=== PATIENT | male | born 1980 | race Hispanic/Latino ===

== ENCOUNTER 2021-02-21 08:23 | Inpatient (IN) | payer SELFPAY ==
[2021-02-21] VITALS (11 sets, daily range): BP systolic 126–150; BP diastolic 84–101
[~2021-02-21] VITALS: Ht 180.3 cm; Wt 131.5 kg
[2021-02-21] MEDS: DEXAMETHASONE SOD PHOS 10 MG/1 ML VIAL IV SCH (08:40)
[2021-02-21 08:41] LABS: BASOPHILS % 0.1 % (0.0-1.0); HEMATOCRIT 47.3 % (38.2-49.6); HEMOGLOBIN 15.6 g/dL (14.0-18.0); LYMPHOCYTES # (AUTO) 1.2 (1.0-3.2); LYMPHOCYTES % 10.4 % (18.0-39.1); MEAN CORPUSCULAR HEMOGLOBIN 29.5 pg (28-32); MEAN CORPUSCULAR VOLUME 89.4 fL (81-99); MONOCYTES % 8.4 % (4.4-11.3); NEUTROPHILS # (AUTO) 9.6 (2.1-6.9); NEUTROPHILS % 80.3 % (38.7-80.0); PLATELET COUNT 311 x10e3/uL (140-360); RED BLOOD COUNT 5.29 x10e6/uL (4.3-5.7); RED CELL DISTRIBUTION WIDTH 13.8 % (11.7-14.4)
[2021-02-21 09:03] LABS: ALBUMIN 3.1 g/dL (3.5-5.0); ALBUMIN/GLOBULIN RATIO 0.6 (0.8-2.0); ANION GAP 18.3 mmol/L (8-16); CALCIUM 9.1 mg/dL (8.4-10.2); CREATININE, SERUM 1.12 mg/dL (0.72-1.25); POTASSIUM 4.3 mmol/L (3.5-5.1)
[2021-02-21] MEDS ORDERED: REMDESIVIR 200MG/NS 100ML 200 MG in SODIUM CHLORIDE 0.9% 100 ML 100 ML IV ONE (12:00)
[2021-02-21] MEDS ORDERED: SIMETHICONE 80 MG CHEW PO PRN (14:15)
[2021-02-21] MEDS ORDERED: ALBUTEROL/IPRATROPIUM 3 ML NEB NEB PRN (14:15)
[2021-02-21] MEDS ORDERED: DEXTROSE 50% SYRINGE 50 ML IV PRN (14:15)
[2021-02-21] MEDS ORDERED: DIPHENHYDRAMINE HCL 25 MG CAP PO PRN (14:15)
[2021-02-21] MEDS ORDERED: ONDANSETRON HCL INJ 2MG/ML 2ML 2 MG/ML VIAL IV PRN (14:15)
[2021-02-21] MEDS ORDERED: HYDRALAZINE HCL 20 MG/ML VIAL IV PRN (14:15)
[2021-02-21] MEDS ORDERED: POTASSIUM CHLORIDE 20 MEQ TAB CR PO PRN (14:15)
[2021-02-21] MEDS ORDERED: DOCUSATE SODIUM 100 MG CAP PO PRN (14:15)
[2021-02-21] MEDS: ENOXAPARIN SOD INJ 40 MG/0.4 ML SYR SC SCH ×2 (15:17→20:03)
[2021-02-21] MEDS ORDERED: ENOXAPARIN SOD INJ 40 MG/0.4 ML SYR SC SCH (17:00)
[2021-02-21] MEDS: CEFTRIAXONE 1 GM in SODIUM CHLORIDE 0.9% 50ML 50 ML IV SCH (17:05)
[2021-02-21] MEDS: ASCORBIC ACID 500 MG TAB PO SCH (18:25)
[2021-02-21] MEDS: DEXMEDETOMIDINE 200MCG/NS 50ML 50 ML IV PRN ×2 (20:24→23:00)
[2021-02-21] MEDS ORDERED: MELATONIN 5 MG TABLET PO PRN (21:00)
[2021-02-21] MEDS ORDERED: ZOLPIDEM TARTRATE 5 MG TAB PO PRN (21:00)
[2021-02-22] VITALS (15 sets, daily range): BP systolic 122–157; BP diastolic 81–116
[2021-02-22] MEDS: DEXMEDETOMIDINE 200MCG/NS 50ML 50 ML IV PRN ×5 (03:14→20:45)
[2021-02-22 05:26] LABS: HEMATOCRIT 45.7 % (38.2-49.6); LYMPHOCYTES # (AUTO) 0.7 (1.0-3.2); LYMPHOCYTES % 7.2 % (18.0-39.1); MEAN CORPUSCULAR HEMOGLOBIN 29.5 pg (28-32); MEAN CORPUSCULAR HGB CONC 32.8 g/dL (31-35); MEAN CORPUSCULAR VOLUME 89.8 fL (81-99); MONOCYTES # (AUTO) 0.7 (0.2-0.8); MONOCYTES % 7.3 % (4.4-11.3); NEUTROPHILS # (AUTO) 8.2 (2.1-6.9); NEUTROPHILS % 84.4 % (38.7-80.0); PLATELET COUNT 318 x10e3/uL (140-360); RED BLOOD COUNT 5.09 x10e6/uL (4.3-5.7); RED CELL DISTRIBUTION WIDTH 13.5 % (11.7-14.4)
[2021-02-22 05:49] LABS: ANION GAP 19.5 mmol/L (8-16); CALCIUM 8.7 mg/dL (8.4-10.2); POTASSIUM 4.5 mmol/L (3.5-5.1)
[2021-02-22] MEDS: DEXAMETHASONE SOD PHOS 10 MG/1 ML VIAL IV SCH (09:31)
[2021-02-22] MEDS: ZINC SULFATE 220 MG CAP PO SCH (09:31)
[2021-02-22] MEDS: ASCORBIC ACID 500 MG TAB PO SCH ×2 (09:31→20:20)
[2021-02-22] MEDS: PANTOPRAZOLE SOD 40 MG TABEC PO SCH (09:31)
[2021-02-22] MEDS: ENOXAPARIN SOD INJ 40 MG/0.4 ML SYR SC SCH ×2 (09:31→20:21)
[2021-02-22] MEDS ORDERED: DEXTROSE 50% SYRINGE 50 ML IV PRN (12:00)
[2021-02-22] MEDS: INSULIN REGULAR, HUMAN 100 UNIT/1 ML SQ SCH ×3 (12:45→21:16)
[2021-02-22] MEDS: REMDESIVIR 100MG/NS 100ML 100 MG in SODIUM CHLORIDE 0.9% 100 ML 100 ML IV SCH (15:00)
[2021-02-22] MEDS: BENZONATATE 100 MG CAP PO PRN (20:20)
[2021-02-22] MEDS: CEFTRIAXONE 1 GM in SODIUM CHLORIDE 0.9% 50ML 50 ML IV SCH (20:20)
[2021-02-22] MEDS: ACETAMINOPHEN 325 MG TAB PO PRN (20:46)
[2021-02-23] VITALS (16 sets, daily range): BP systolic 140–171; BP diastolic 84–117
[2021-02-23] MEDS: DEXMEDETOMIDINE 200MCG/NS 50ML 50 ML IV PRN ×5 (00:24→19:50)
[2021-02-23 05:02] LABS: BASOPHILS % 0.3 % (0.0-1.0); HEMATOCRIT 46.8 % (38.2-49.6); HEMOGLOBIN 15.3 g/dL (14.0-18.0); LYMPHOCYTES # (AUTO) 0.5 (1.0-3.2); LYMPHOCYTES % 5.7 % (18.0-39.1); MEAN CORPUSCULAR HEMOGLOBIN 29.5 pg (28-32); MEAN CORPUSCULAR HGB CONC 32.7 g/dL (31-35); MEAN CORPUSCULAR VOLUME 90.3 fL (81-99); MONOCYTES # (AUTO) 0.5 (0.2-0.8); MONOCYTES % 5.3 % (4.4-11.3); NEUTROPHILS # (AUTO) 8.1 (2.1-6.9); NEUTROPHILS % 87.8 % (38.7-80.0); PLATELET COUNT 271 x10e3/uL (140-360); RED BLOOD COUNT 5.18 x10e6/uL (4.3-5.7); RED CELL DISTRIBUTION WIDTH 13.3 % (11.7-14.4)
[2021-02-23 05:27] LABS: ALBUMIN 2.7 g/dL (3.5-5.0); ALBUMIN/GLOBULIN RATIO 0.7 (0.8-2.0); ANION GAP 13.6 mmol/L (8-16); CALCIUM 8.6 mg/dL (8.4-10.2); CREATININE, SERUM 0.81 mg/dL (0.72-1.25); POTASSIUM 4.6 mmol/L (3.5-5.1)
[2021-02-23] MEDS: ASCORBIC ACID 500 MG TAB PO SCH ×2 (07:20→16:12)
[2021-02-23] MEDS: ENOXAPARIN SOD INJ 40 MG/0.4 ML SYR SC SCH ×2 (07:20→21:34)
[2021-02-23] MEDS: PANTOPRAZOLE SOD 40 MG TABEC PO SCH (07:20)
[2021-02-23] MEDS: ZINC SULFATE 220 MG CAP PO SCH (07:20)
[2021-02-23] MEDS: DEXAMETHASONE SOD PHOS 10 MG/1 ML VIAL IV SCH (07:20)
[2021-02-23] MEDS: INSULIN REGULAR, HUMAN 100 UNIT/1 ML SQ SCH ×4 (08:00→21:00)
[2021-02-23] MEDS: REMDESIVIR 100MG/NS 100ML 100 MG in SODIUM CHLORIDE 0.9% 100 ML 100 ML IV SCH (13:49)
[2021-02-23] MEDS: CEFTRIAXONE 1 GM in SODIUM CHLORIDE 0.9% 50ML 50 ML IV SCH (16:09)
[2021-02-23] MEDS: HYDRALAZINE HCL 20 MG/ML VIAL IV PRN (23:50)
[2021-02-24] VITALS (26 sets, daily range): BP systolic 112–170; BP diastolic 67–116
[2021-02-24] MEDS ORDERED: RIFAXIMIN 550 MG TABLET ONE (01:03)
[2021-02-24] MEDS: DEXMEDETOMIDINE 200MCG/NS 50ML 50 ML IV PRN ×6 (03:30→20:40)
[2021-02-24 05:30] LABS: BASOPHILS % 0.2 % (0.0-1.0); HEMOGLOBIN 15.6 g/dL (14.0-18.0); LYMPHOCYTES # (AUTO) 0.6 (1.0-3.2); LYMPHOCYTES % 5.7 % (18.0-39.1); MEAN CORPUSCULAR HEMOGLOBIN 29.7 pg (28-32); MEAN CORPUSCULAR HGB CONC 33.2 g/dL (31-35); MEAN CORPUSCULAR VOLUME 89.4 fL (81-99); MONOCYTES # (AUTO) 0.5 (0.2-0.8); MONOCYTES % 4.8 % (4.4-11.3); NEUTROPHILS # (AUTO) 8.9 (2.1-6.9); NEUTROPHILS % 87.9 % (38.7-80.0); PLATELET COUNT 193 x10e3/uL (140-360); RED BLOOD COUNT 5.26 x10e6/uL (4.3-5.7); RED CELL DISTRIBUTION WIDTH 13.5 % (11.7-14.4)
[2021-02-24 05:52] LABS: ALBUMIN 2.8 g/dL (3.5-5.0); ALBUMIN/GLOBULIN RATIO 0.7 (0.8-2.0); ANION GAP 15.9 mmol/L (8-16); CALCIUM 8.7 mg/dL (8.4-10.2); CREATININE, SERUM 0.81 mg/dL (0.72-1.25); POTASSIUM 4.9 mmol/L (3.5-5.1)
[2021-02-24] MEDS: PANTOPRAZOLE SOD 40 MG TABEC PO SCH (08:15)
[2021-02-24] MEDS: INSULIN REGULAR, HUMAN 100 UNIT/1 ML SQ SCH ×4 (08:15→20:38)
[2021-02-24] MEDS: ASCORBIC ACID 500 MG TAB PO SCH ×2 (08:57→17:44)
[2021-02-24] MEDS: ENOXAPARIN SOD INJ 40 MG/0.4 ML SYR SC SCH ×2 (08:57→20:38)
[2021-02-24] MEDS: DEXAMETHASONE SOD PHOS 10 MG/1 ML VIAL IV SCH (08:57)
[2021-02-24] MEDS: ZINC SULFATE 220 MG CAP PO SCH (08:57)
[2021-02-24] MEDS: ACETAMINOPHEN 325 MG TAB PO PRN (10:21)
[2021-02-24] MEDS: GUAIFENESIN/CODEINE 10 ML CUP PO PRN (10:21)
[2021-02-24] MEDS: REMDESIVIR 100MG/NS 100ML 100 MG in SODIUM CHLORIDE 0.9% 100 ML 100 ML IV SCH (14:10)
[2021-02-24] MEDS: CEFTRIAXONE 1 GM in SODIUM CHLORIDE 0.9% 50ML 50 ML IV SCH (17:44)
[2021-02-24] MEDS: HYDRALAZINE HCL 20 MG/ML VIAL IV PRN (21:09)
[2021-02-25] VITALS (27 sets, daily range): BP systolic 99–150; BP diastolic 79–104
[2021-02-25] MEDS: DEXMEDETOMIDINE 200MCG/NS 50ML 50 ML IV PRN ×8 (00:48→22:41)
[2021-02-25] MEDS: ACETAMINOPHEN 325 MG TAB PO PRN ×2 (02:14→08:06)
[2021-02-25 05:04] LABS: BASOPHILS % 0.1 % (0.0-1.0); EOSINOPHILS % 0.4 % (0.0-6.0); HEMATOCRIT 46.2 % (38.2-49.6); HEMOGLOBIN 15.5 g/dL (14.0-18.0); LYMPHOCYTES # (AUTO) 0.5 (1.0-3.2); LYMPHOCYTES % 5.3 % (18.0-39.1); MEAN CORPUSCULAR HEMOGLOBIN 29.8 pg (28-32); MEAN CORPUSCULAR HGB CONC 33.5 g/dL (31-35); MEAN CORPUSCULAR VOLUME 88.7 fL (81-99); MONOCYTES # (AUTO) 0.3 (0.2-0.8); MONOCYTES % 3.6 % (4.4-11.3); NEUTROPHILS # (AUTO) 8.4 (2.1-6.9); NEUTROPHILS % 88.9 % (38.7-80.0); PLATELET COUNT 187 x10e3/uL (140-360); RED BLOOD COUNT 5.21 x10e6/uL (4.3-5.7); RED CELL DISTRIBUTION WIDTH 13.4 % (11.7-14.4)
[2021-02-25 05:27] LABS: ALBUMIN 2.6 g/dL (3.5-5.0); ALBUMIN/GLOBULIN RATIO 0.6 (0.8-2.0); ANION GAP 16.9 mmol/L (8-16); CALCIUM 8.2 mg/dL (8.4-10.2); CREATININE, SERUM 0.77 mg/dL (0.72-1.25); POTASSIUM 4.9 mmol/L (3.5-5.1)
[2021-02-25] MEDS: DEXAMETHASONE SOD PHOS 10 MG/1 ML VIAL IV SCH (08:04)
[2021-02-25] MEDS: PANTOPRAZOLE SOD 40 MG TABEC PO SCH (08:04)
[2021-02-25] MEDS: ZINC SULFATE 220 MG CAP PO SCH (08:05)
[2021-02-25] MEDS: ENOXAPARIN SOD INJ 40 MG/0.4 ML SYR SC SCH ×2 (08:05→20:51)
[2021-02-25] MEDS: ASCORBIC ACID 500 MG TAB PO SCH ×2 (08:05→16:45)
[2021-02-25] MEDS: INSULIN REGULAR, HUMAN 100 UNIT/1 ML SQ SCH ×4 (08:09→20:52)
[2021-02-25] MEDS: REMDESIVIR 100MG/NS 100ML 100 MG in SODIUM CHLORIDE 0.9% 100 ML 100 ML IV SCH (13:06)
[2021-02-26] VITALS (26 sets, daily range): BP systolic 99–160; BP diastolic 57–109
[2021-02-26] MEDS: DEXMEDETOMIDINE 200MCG/NS 50ML 50 ML IV PRN ×6 (02:59→23:30)
[2021-02-26 04:56] LABS: BASOPHILS % 0.2 % (0.0-1.0); EOSINOPHILS # (AUTO) 0.1 (0.0-0.4); EOSINOPHILS % 0.6 % (0.0-6.0); HEMATOCRIT 48.3 % (38.2-49.6); LYMPHOCYTES # (AUTO) 0.5 (1.0-3.2); LYMPHOCYTES % 4.9 % (18.0-39.1); MEAN CORPUSCULAR HGB CONC 33.1 g/dL (31-35); MEAN CORPUSCULAR VOLUME 90.4 fL (81-99); MONOCYTES # (AUTO) 0.4 (0.2-0.8); MONOCYTES % 3.9 % (4.4-11.3); NEUTROPHILS # (AUTO) 9.5 (2.1-6.9); NEUTROPHILS % 87.6 % (38.7-80.0); PLATELET COUNT 237 x10e3/uL (140-360); RED BLOOD COUNT 5.34 x10e6/uL (4.3-5.7); RED CELL DISTRIBUTION WIDTH 13.6 % (11.7-14.4)
[2021-02-26 05:25] LABS: ALBUMIN 2.5 g/dL (3.5-5.0); ALBUMIN/GLOBULIN RATIO 0.5 (0.8-2.0); ANION GAP 15.3 mmol/L (8-16); CALCIUM 8.9 mg/dL (8.4-10.2); CREATININE, SERUM 0.75 mg/dL (0.72-1.25); POTASSIUM 5.3 mmol/L (3.5-5.1)
[2021-02-26] MEDS: PANTOPRAZOLE SOD 40 MG TABEC PO SCH (08:02)
[2021-02-26] MEDS: ENOXAPARIN SOD INJ 40 MG/0.4 ML SYR SC SCH ×2 (08:03→20:20)
[2021-02-26] MEDS: ASCORBIC ACID 500 MG TAB PO SCH ×2 (08:03→17:00)
[2021-02-26] MEDS: DEXAMETHASONE SOD PHOS 10 MG/1 ML VIAL IV SCH (08:03)
[2021-02-26] MEDS: ZINC SULFATE 220 MG CAP PO SCH (08:03)
[2021-02-26] MEDS: INSULIN REGULAR, HUMAN 100 UNIT/1 ML SQ SCH ×4 (08:04→20:21)
[2021-02-26] MEDS ORDERED: TOCILIZUMAB 800 MG in SODIUM CHLORIDE 0.9% 100 ML IV ONE (12:00)
[2021-02-27] VITALS (26 sets, daily range): BP systolic 107–170; BP diastolic 68–111
[2021-02-27] MEDS: HYDRALAZINE HCL 20 MG/ML VIAL IV PRN (02:33)
[2021-02-27] MEDS: DEXMEDETOMIDINE 200MCG/NS 50ML 50 ML IV PRN ×6 (03:50→17:30)
[2021-02-27 04:57] LABS: BASOPHILS % 0.3 % (0.0-1.0); EOSINOPHILS % 0.4 % (0.0-6.0); HEMATOCRIT 47.2 % (38.2-49.6); HEMOGLOBIN 15.4 g/dL (14.0-18.0); LYMPHOCYTES # (AUTO) 0.5 (1.0-3.2); MEAN CORPUSCULAR HEMOGLOBIN 29.2 pg (28-32); MEAN CORPUSCULAR HGB CONC 32.6 g/dL (31-35); MEAN CORPUSCULAR VOLUME 89.6 fL (81-99); MONOCYTES # (AUTO) 0.4 (0.2-0.8); NEUTROPHILS # (AUTO) 8.6 (2.1-6.9); NEUTROPHILS % 88.7 % (38.7-80.0); PLATELET COUNT 244 x10e3/uL (140-360); RED BLOOD COUNT 5.27 x10e6/uL (4.3-5.7); RED CELL DISTRIBUTION WIDTH 13.5 % (11.7-14.4)
[2021-02-27 05:27] LABS: ALBUMIN 2.5 g/dL (3.5-5.0); ALBUMIN/GLOBULIN RATIO 0.6 (0.8-2.0); CALCIUM 8.8 mg/dL (8.4-10.2); CREATININE, SERUM 0.74 mg/dL (0.72-1.25)
[2021-02-27] MEDS: PANTOPRAZOLE SOD 40 MG TABEC PO SCH (08:14)
[2021-02-27] MEDS: ASCORBIC ACID 500 MG TAB PO SCH ×2 (08:25→17:28)
[2021-02-27] MEDS: ENOXAPARIN SOD INJ 40 MG/0.4 ML SYR SC SCH ×2 (08:25→20:40)
[2021-02-27] MEDS: ZINC SULFATE 220 MG CAP PO SCH (08:25)
[2021-02-27] MEDS: DEXAMETHASONE SOD PHOS 10 MG/1 ML VIAL IV SCH (08:25)
[2021-02-27] MEDS: INSULIN REGULAR, HUMAN 100 UNIT/1 ML SQ SCH ×4 (08:31→20:40)
[2021-02-28] VITALS (25 sets, daily range): BP systolic 105–153; BP diastolic 70–98
[2021-02-28] MEDS: DEXMEDETOMIDINE 200MCG/NS 50ML 50 ML IV PRN ×9 (00:19→19:50)
[2021-02-28 06:08] LABS: BASOPHILS % 0.1 % (0.0-1.0); EOSINOPHILS # (AUTO) 0.1 (0.0-0.4); EOSINOPHILS % 0.9 % (0.0-6.0); HEMATOCRIT 49.2 % (38.2-49.6); HEMOGLOBIN 16.2 g/dL (14.0-18.0); LYMPHOCYTES # (AUTO) 0.5 (1.0-3.2); LYMPHOCYTES % 5.5 % (18.0-39.1); MEAN CORPUSCULAR HEMOGLOBIN 29.6 pg (28-32); MEAN CORPUSCULAR HGB CONC 32.9 g/dL (31-35); MEAN CORPUSCULAR VOLUME 89.9 fL (81-99); MONOCYTES # (AUTO) 0.4 (0.2-0.8); MONOCYTES % 4.8 % (4.4-11.3); NEUTROPHILS # (AUTO) 7.5 (2.1-6.9); NEUTROPHILS % 87.8 % (38.7-80.0); PLATELET COUNT 247 x10e3/uL (140-360); RED BLOOD COUNT 5.47 x10e6/uL (4.3-5.7); RED CELL DISTRIBUTION WIDTH 13.4 % (11.7-14.4)
[2021-02-28 06:26] LABS: ALBUMIN 2.6 g/dL (3.5-5.0); ALBUMIN/GLOBULIN RATIO 0.6 (0.8-2.0); ANION GAP 13.6 mmol/L (8-16); CALCIUM 8.9 mg/dL (8.4-10.2); CREATININE, SERUM 0.75 mg/dL (0.72-1.25); POTASSIUM 5.6 mmol/L (3.5-5.1)
[2021-02-28] MEDS: INSULIN REGULAR, HUMAN 100 UNIT/1 ML SQ SCH ×4 (07:35→20:46)
[2021-02-28] MEDS: PANTOPRAZOLE SOD 40 MG TABEC PO SCH (07:35)
[2021-02-28] MEDS: ENOXAPARIN SOD INJ 40 MG/0.4 ML SYR SC SCH (08:30)
[2021-02-28] MEDS: ZINC SULFATE 220 MG CAP PO SCH (08:30)
[2021-02-28] MEDS: ASCORBIC ACID 500 MG TAB PO SCH ×2 (08:30→17:33)
[2021-02-28] MEDS: GUAIFENESIN/CODEINE 10 ML CUP PO PRN (10:47)
[2021-02-28] MEDS ORDERED: FUROSEMIDE INJ 10 MG/ML 4 ML VIAL IV ONE ×2 (12:45→17:00)
[2021-02-28] MEDS: DEXMEDETOMIDINE 200MCG/NS 50ML 50 ML IV SCH (23:37)
[2021-03-01] VITALS (25 sets, daily range): BP systolic 88–124; BP diastolic 53–90
[2021-03-01] MEDS: DEXMEDETOMIDINE 200MCG/NS 50ML 50 ML IV SCH ×7 (00:01→23:10)
[2021-03-01 05:50] LABS: BASOPHILS % 0.2 % (0.0-1.0); EOSINOPHILS # (AUTO) 0.4 (0.0-0.4); EOSINOPHILS % 4.1 % (0.0-6.0); HEMATOCRIT 51.4 % (38.2-49.6); HEMOGLOBIN 16.6 g/dL (14.0-18.0); LYMPHOCYTES # (AUTO) 0.6 (1.0-3.2); LYMPHOCYTES % 6.6 % (18.0-39.1); MEAN CORPUSCULAR HEMOGLOBIN 29.1 pg (28-32); MEAN CORPUSCULAR HGB CONC 32.3 g/dL (31-35); MONOCYTES # (AUTO) 0.3 (0.2-0.8); MONOCYTES % 3.4 % (4.4-11.3); NEUTROPHILS # (AUTO) 7.7 (2.1-6.9); PLATELET COUNT 231 x10e3/uL (140-360); RED BLOOD COUNT 5.71 x10e6/uL (4.3-5.7); RED CELL DISTRIBUTION WIDTH 13.3 % (11.7-14.4)
[2021-03-01 06:45] LABS: ALBUMIN 2.6 g/dL (3.5-5.0); ALBUMIN/GLOBULIN RATIO 0.6 (0.8-2.0); ANION GAP 13.7 mmol/L (8-16); CALCIUM 8.6 mg/dL (8.4-10.2); CREATININE, SERUM 0.9 mg/dL (0.72-1.25); POTASSIUM 4.7 mmol/L (3.5-5.1)
[2021-03-01] MEDS: PANTOPRAZOLE SOD 40 MG TABEC PO SCH (08:33)
[2021-03-01] MEDS: ZINC SULFATE 220 MG CAP PO SCH (08:36)
[2021-03-01] MEDS: INSULIN REGULAR, HUMAN 100 UNIT/1 ML SQ SCH ×4 (08:36→20:54)
[2021-03-01] MEDS: ASCORBIC ACID 500 MG TAB PO SCH ×2 (08:36→16:42)
[2021-03-01] MEDS: ACETAMINOPHEN 325 MG TAB PO PRN ×2 (08:37→17:26)
[2021-03-01] MEDS ORDERED: SODIUM CHLORIDE 0.9% 1000ML 1,000 ML IV ONE (11:45)
[2021-03-01] MEDS: ENOXAPARIN SOD INJ 40 MG/0.4 ML SYR SC SCH (20:52)
[2021-03-01] MEDS: BENZONATATE 100 MG CAP PO PRN (20:54)
[2021-03-02] VITALS (26 sets, daily range): BP systolic 85–131; BP diastolic 65–92
[2021-03-02] MEDS: DEXMEDETOMIDINE 200MCG/NS 50ML 50 ML IV SCH ×7 (00:12→21:54)
[2021-03-02] MEDS: ACETAMINOPHEN 325 MG TAB PO PRN ×2 (00:13→22:30)
[2021-03-02] MEDS: LIDOCAINE 4% PATCH TP PRN ×2 (00:17→13:25)
[2021-03-02 05:13] LABS: BASOPHILS % 0.2 % (0.0-1.0); EOSINOPHILS # (AUTO) 0.3 (0.0-0.4); EOSINOPHILS % 2.5 % (0.0-6.0); HEMATOCRIT 47.5 % (38.2-49.6); HEMOGLOBIN 15.6 g/dL (14.0-18.0); LYMPHOCYTES # (AUTO) 0.7 (1.0-3.2); LYMPHOCYTES % 6.2 % (18.0-39.1); MEAN CORPUSCULAR HEMOGLOBIN 29.1 pg (28-32); MEAN CORPUSCULAR HGB CONC 32.8 g/dL (31-35); MEAN CORPUSCULAR VOLUME 88.6 fL (81-99); MONOCYTES # (AUTO) 0.2 (0.2-0.8); MONOCYTES % 2.1 % (4.4-11.3); NEUTROPHILS # (AUTO) 9.7 (2.1-6.9); NEUTROPHILS % 88.5 % (38.7-80.0); PLATELET COUNT 164 x10e3/uL (140-360); RED BLOOD COUNT 5.36 x10e6/uL (4.3-5.7); RED CELL DISTRIBUTION WIDTH 13.1 % (11.7-14.4)
[2021-03-02 05:32] LABS: ALBUMIN 2.6 g/dL (3.5-5.0); ALBUMIN/GLOBULIN RATIO 0.7 (0.8-2.0); ANION GAP 14.6 mmol/L (8-16); CALCIUM 8.3 mg/dL (8.4-10.2); CREATININE, SERUM 0.75 mg/dL (0.72-1.25); POTASSIUM 4.6 mmol/L (3.5-5.1)
[2021-03-02] MEDS: BENZONATATE 100 MG CAP PO PRN ×3 (05:35→20:20)
[2021-03-02] MEDS: PANTOPRAZOLE SOD 40 MG TABEC PO SCH ×2 (07:42→07:52)
[2021-03-02] MEDS: INSULIN REGULAR, HUMAN 100 UNIT/1 ML SQ SCH ×4 (07:43→21:00)
[2021-03-02] MEDS: ENOXAPARIN SOD INJ 40 MG/0.4 ML SYR SC SCH ×2 (07:52→20:08)
[2021-03-02] MEDS: ZINC SULFATE 220 MG CAP PO SCH (07:52)
[2021-03-02] MEDS: ASCORBIC ACID 500 MG TAB PO SCH ×2 (07:52→18:09)
[2021-03-03] VITALS (24 sets, daily range): BP systolic 90–129; BP diastolic 54–99
[2021-03-03] MEDS: DEXMEDETOMIDINE 200MCG/NS 50ML 50 ML IV SCH ×7 (02:18→22:09)
[2021-03-03] MEDS: ACETAMINOPHEN 325 MG TAB PO PRN ×4 (04:26→22:09)
[2021-03-03 06:20] LABS: BASOPHILS % 0.3 % (0.0-1.0); EOSINOPHILS # (AUTO) 0.3 (0.0-0.4); EOSINOPHILS % 2.2 % (0.0-6.0); HEMOGLOBIN 15.2 g/dL (14.0-18.0); LYMPHOCYTES # (AUTO) 0.7 (1.0-3.2); LYMPHOCYTES % 5.1 % (18.0-39.1); MEAN CORPUSCULAR HEMOGLOBIN 29.3 pg (28-32); MEAN CORPUSCULAR HGB CONC 32.3 g/dL (31-35); MEAN CORPUSCULAR VOLUME 90.6 fL (81-99); MONOCYTES # (AUTO) 0.3 (0.2-0.8); MONOCYTES % 2.5 % (4.4-11.3); NEUTROPHILS # (AUTO) 12.1 (2.1-6.9); NEUTROPHILS % 89.1 % (38.7-80.0); PLATELET COUNT 188 x10e3/uL (140-360); RED BLOOD COUNT 5.19 x10e6/uL (4.3-5.7); RED CELL DISTRIBUTION WIDTH 13.3 % (11.7-14.4)
[2021-03-03 07:30] LABS: ALBUMIN 2.7 g/dL (3.5-5.0); ALBUMIN/GLOBULIN RATIO 0.7 (0.8-2.0); ANION GAP 17.9 mmol/L (8-16); CALCIUM 8.3 mg/dL (8.4-10.2); CREATININE, SERUM 0.73 mg/dL (0.72-1.25); POTASSIUM 4.9 mmol/L (3.5-5.1)
[2021-03-03] MEDS: INSULIN REGULAR, HUMAN 100 UNIT/1 ML SQ SCH ×4 (07:30→20:58)
[2021-03-03] MEDS: ENOXAPARIN SOD INJ 40 MG/0.4 ML SYR SC SCH ×2 (08:05→20:16)
[2021-03-03] MEDS: ZINC SULFATE 220 MG CAP PO SCH (08:05)
[2021-03-03] MEDS: ASCORBIC ACID 500 MG TAB PO SCH ×2 (08:05→16:46)
[2021-03-03] MEDS: BENZONATATE 100 MG CAP PO PRN (17:04)
[2021-03-03] MEDS: LIDOCAINE 4% PATCH TP PRN (20:15)
[2021-03-04] VITALS (26 sets, daily range): BP systolic 125–149; BP diastolic 79–98
[2021-03-04] MEDS: DEXMEDETOMIDINE 200MCG/NS 50ML 50 ML IV SCH ×5 (01:57→18:09)
[2021-03-04 05:36] LABS: BASOPHILS % 0.3 % (0.0-1.0); EOSINOPHILS # (AUTO) 0.4 (0.0-0.4); EOSINOPHILS % 2.5 % (0.0-6.0); HEMATOCRIT 46.4 % (38.2-49.6); LYMPHOCYTES # (AUTO) 0.9 (1.0-3.2); LYMPHOCYTES % 6.1 % (18.0-39.1); MEAN CORPUSCULAR HEMOGLOBIN 29.5 pg (28-32); MEAN CORPUSCULAR HGB CONC 32.3 g/dL (31-35); MEAN CORPUSCULAR VOLUME 91.3 fL (81-99); MONOCYTES # (AUTO) 0.3 (0.2-0.8); MONOCYTES % 2.2 % (4.4-11.3); NEUTROPHILS # (AUTO) 13.3 (2.1-6.9); PLATELET COUNT 186 x10e3/uL (140-360); RED BLOOD COUNT 5.08 x10e6/uL (4.3-5.7); RED CELL DISTRIBUTION WIDTH 13.4 % (11.7-14.4)
[2021-03-04 06:04] LABS: ALBUMIN 2.8 g/dL (3.5-5.0); ALBUMIN/GLOBULIN RATIO 0.8 (0.8-2.0); ANION GAP 17.7 mmol/L (8-16); CALCIUM 8.4 mg/dL (8.4-10.2); CREATININE, SERUM 0.73 mg/dL (0.72-1.25); POTASSIUM 4.7 mmol/L (3.5-5.1)
[2021-03-04] MEDS: INSULIN REGULAR, HUMAN 100 UNIT/1 ML SQ SCH ×4 (07:30→20:33)
[2021-03-04] MEDS: ZINC SULFATE 220 MG CAP PO SCH (08:51)
[2021-03-04] MEDS: GUAIFENESIN/CODEINE 10 ML CUP PO PRN ×2 (08:51→23:51)
[2021-03-04] MEDS: PANTOPRAZOLE SOD 40 MG TABEC PO SCH (08:51)
[2021-03-04] MEDS: ASCORBIC ACID 500 MG TAB PO SCH ×2 (08:51→18:08)
[2021-03-04] MEDS: ENOXAPARIN SOD INJ 40 MG/0.4 ML SYR SC SCH ×2 (08:51→20:31)
[2021-03-04] MEDS: ACETAMINOPHEN 325 MG TAB PO PRN (08:55)
[2021-03-04] MEDS: BENZONATATE 100 MG CAP PO PRN (20:41)
[2021-03-05] VITALS (25 sets, daily range): BP systolic 121–158; BP diastolic 63–95
[2021-03-05] MEDS: DEXMEDETOMIDINE 200MCG/NS 50ML 50 ML IV SCH ×11 (01:09→22:53)
[2021-03-05] MEDS: BENZONATATE 100 MG CAP PO PRN ×2 (05:23→11:56)
[2021-03-05 05:59] LABS: BASOPHILS # (AUTO) 0.1 (0.0-0.1); BASOPHILS % 0.5 % (0.0-1.0); EOSINOPHILS # (AUTO) 0.4 (0.0-0.4); EOSINOPHILS % 2.7 % (0.0-6.0); HEMATOCRIT 44.5 % (38.2-49.6); HEMOGLOBIN 14.3 g/dL (14.0-18.0); LYMPHOCYTES # (AUTO) 0.7 (1.0-3.2); LYMPHOCYTES % 5.4 % (18.0-39.1); MEAN CORPUSCULAR HEMOGLOBIN 29.5 pg (28-32); MEAN CORPUSCULAR HGB CONC 32.1 g/dL (31-35); MEAN CORPUSCULAR VOLUME 91.8 fL (81-99); MONOCYTES # (AUTO) 0.4 (0.2-0.8); MONOCYTES % 2.8 % (4.4-11.3); NEUTROPHILS % 87.5 % (38.7-80.0); PLATELET COUNT 179 x10e3/uL (140-360); RED BLOOD COUNT 4.85 x10e6/uL (4.3-5.7); RED CELL DISTRIBUTION WIDTH 13.7 % (11.7-14.4)
[2021-03-05] MEDS: INSULIN REGULAR, HUMAN 100 UNIT/1 ML SQ SCH ×4 (07:30→21:50)
[2021-03-05 07:57] LABS: ANION GAP 17.3 mmol/L (8-16); CALCIUM 8.1 mg/dL (8.4-10.2); CREATININE, SERUM 0.69 mg/dL (0.72-1.25); POTASSIUM 4.3 mmol/L (3.5-5.1)
[2021-03-05] MEDS: PANTOPRAZOLE SOD 40 MG TABEC PO SCH (08:42)
[2021-03-05] MEDS: ASCORBIC ACID 500 MG TAB PO SCH ×2 (08:42→16:31)
[2021-03-05] MEDS: ZINC SULFATE 220 MG CAP PO SCH (08:43)
[2021-03-05] MEDS: ENOXAPARIN SOD INJ 40 MG/0.4 ML SYR SC SCH ×2 (08:43→21:29)
[2021-03-05] MEDS: LIDOCAINE 4% PATCH TP PRN (13:50)
[2021-03-05] MEDS: ACETAMINOPHEN 325 MG TAB PO PRN (13:50)
[2021-03-06] VITALS (25 sets, daily range): BP systolic 83–162; BP diastolic 55–101
[2021-03-06] MEDS: DEXMEDETOMIDINE 200MCG/NS 50ML 50 ML IV SCH ×7 (02:26→14:24)
[2021-03-06 06:03] LABS: BASOPHILS # (AUTO) 0.1 (0.0-0.1); BASOPHILS % 0.6 % (0.0-1.0); EOSINOPHILS # (AUTO) 0.4 (0.0-0.4); EOSINOPHILS % 3.2 % (0.0-6.0); HEMATOCRIT 44.7 % (38.2-49.6); HEMOGLOBIN 14.4 g/dL (14.0-18.0); LYMPHOCYTES # (AUTO) 0.7 (1.0-3.2); LYMPHOCYTES % 5.3 % (18.0-39.1); MEAN CORPUSCULAR HEMOGLOBIN 29.3 pg (28-32); MEAN CORPUSCULAR HGB CONC 32.2 g/dL (31-35); MONOCYTES # (AUTO) 0.4 (0.2-0.8); MONOCYTES % 3.5 % (4.4-11.3); NEUTROPHILS # (AUTO) 10.7 (2.1-6.9); NEUTROPHILS % 86.4 % (38.7-80.0); PLATELET COUNT 182 x10e3/uL (140-360); RED BLOOD COUNT 4.91 x10e6/uL (4.3-5.7); RED CELL DISTRIBUTION WIDTH 13.5 % (11.7-14.4)
[2021-03-06 06:30] LABS: ANION GAP 16.3 mmol/L (8-16); CALCIUM 8.5 mg/dL (8.4-10.2); CREATININE, SERUM 0.69 mg/dL (0.72-1.25); POTASSIUM 4.3 mmol/L (3.5-5.1)
[2021-03-06] MEDS: ASCORBIC ACID 500 MG TAB PO SCH ×2 (07:42→16:57)
[2021-03-06] MEDS: PANTOPRAZOLE SOD 40 MG TABEC PO SCH (07:42)
[2021-03-06] MEDS: ZINC SULFATE 220 MG CAP PO SCH (07:43)
[2021-03-06] MEDS: INSULIN REGULAR, HUMAN 100 UNIT/1 ML SQ SCH ×3 (07:43→16:30)
[2021-03-06] MEDS: ENOXAPARIN SOD INJ 40 MG/0.4 ML SYR SC SCH ×2 (07:43→22:00)
[2021-03-06] MEDS: BENZONATATE 100 MG CAP PO PRN ×2 (08:27→14:24)
[2021-03-06] MEDS: GUAIFENESIN/CODEINE 10 ML CUP PO PRN ×2 (08:27→14:24)
[2021-03-06] MEDS: ACETAMINOPHEN 325 MG TAB PO PRN (14:24)
[2021-03-06] MEDS ORDERED: LACTATED RINGER'S 1,000 ML INJ ONE (16:15)
[2021-03-06] MEDS: FENTANYL 2000MCG/NS 250 250 ML IV SCH ×2 (16:55→22:24)
[2021-03-06] MEDS: MIDAZOLAM HCL 5MG/ML 10ML VIAL 100 ML IV PRN ×2 (16:56→21:17)
[2021-03-06] MEDS: ROCURONIUM 1250MG/NS 250 250 ML IV SCH (16:56)
[2021-03-06] MEDS ORDERED: ETOMIDATE 2 MG/ML 10 ML INJ IV ONE (19:44)
[2021-03-06] MEDS ORDERED: VECURONIUM BROMIDE FOR INJ 20 MG VIAL ONE (19:44)
[2021-03-06] MEDS ORDERED: WATER STERILE 10 ML VIAL ONE (19:44)
[2021-03-06] MEDS ORDERED: MIDAZOLAM HCL 2 MG/2 ML VIAL ONE (19:44)
[2021-03-06] MEDS ORDERED: SUCCINYLCHOLINE CHLORIDE 20 MG/ML 10ML VIAL ONE (19:44)
[2021-03-06 19:45] LABS: ABG HCO3 28 mmol/L (22-26); ABG PCO2 53 mmHg (35-45); ABG PH 7.32 (7.35-7.45); ABG PO2 83 mmHg (80-105); ABG TCO2 29
[2021-03-06] MEDS ORDERED: NOREPINEPHRINE 8 MG/D5W 250 ML 250 ML IV PRN (20:30)
[2021-03-06] MEDS ORDERED: PROPOFOL IV EMULSION 10MG/ML 100 ML ONE (21:44)
[2021-03-06] MEDS ORDERED: ACETAMINOPHEN 1000 MG/100 ML 100 ML IV ONE (21:47)
[2021-03-06] MEDS ORDERED: ACETAMINOPHEN 1000 MG/100 ML IV STA (22:25)
[2021-03-06] MEDS: PROPOFOL IV EMULSION 10MG/ML 100 ML IV PRN (22:35)
[2021-03-07] VITALS (26 sets, daily range): BP systolic 77–123; BP diastolic 50–83
[2021-03-07] MEDS: PROPOFOL IV EMULSION 10MG/ML 100 ML IV PRN (02:09)
[2021-03-07] MEDS: MIDAZOLAM HCL 5MG/ML 10ML VIAL 100 ML IV PRN ×5 (02:10→20:30)
[2021-03-07] MEDS: ACETAMINOPHEN 325 MG TAB PO PRN (05:11)
[2021-03-07 05:26] LABS: BASOPHILS # (AUTO) 0.2 (0.0-0.1); BASOPHILS % 0.6 % (0.0-1.0); EOSINOPHILS # (AUTO) 0.5 (0.0-0.4); EOSINOPHILS % 1.4 % (0.0-6.0); HEMATOCRIT 48.1 % (38.2-49.6); HEMOGLOBIN 15.2 g/dL (14.0-18.0); LYMPHOCYTES # (AUTO) 1.1 (1.0-3.2); LYMPHOCYTES % 3.2 % (18.0-39.1); MEAN CORPUSCULAR HEMOGLOBIN 30.1 pg (28-32); MEAN CORPUSCULAR HGB CONC 31.6 g/dL (31-35); MEAN CORPUSCULAR VOLUME 95.2 fL (81-99); MONOCYTES # (AUTO) 1.1 (0.2-0.8); NEUTROPHILS # (AUTO) 31.8 (2.1-6.9); NEUTROPHILS % 89.9 % (38.7-80.0); PLATELET COUNT 236 x10e3/uL (140-360); RED BLOOD COUNT 5.05 x10e6/uL (4.3-5.7); RED CELL DISTRIBUTION WIDTH 14.2 % (11.7-14.4)
[2021-03-07] MEDS: FENTANYL 2000MCG/NS 250 250 ML IV SCH ×3 (05:43→16:19)
[2021-03-07 05:44] LABS: ANION GAP 18.8 mmol/L (8-16); CALCIUM 8.2 mg/dL (8.4-10.2); CREATININE, SERUM 0.95 mg/dL (0.72-1.25); POTASSIUM 4.8 mmol/L (3.5-5.1)
[2021-03-07] MEDS: INSULIN REGULAR, HUMAN 100 UNIT/1 ML SQ SCH ×4 (05:53→18:00)
[2021-03-07] MEDS ORDERED: Vancomycin IV 1 GM in SODIUM CHLORIDE 0.9% 250ML 250 ML IV ONE (07:15)
[2021-03-07] MEDS: PANTOPRAZOLE SOD 40 MG TABEC PO SCH (07:30)
[2021-03-07 07:39] LABS: BAND NEUTROPHILS % (MANUAL) 7 %; EOSINOPHILS % (MANUAL) 2 % (0-7); LYMPHOCYTES % (MANUAL) 1 % (19-48); MONOCYTES % (MANUAL) 2 % (3.4-9.0); NEUTROPHILS % (MANUAL) 86 % (40-74); PLATELET ESTIMATE ADEQUATE; PLATELET MORPHOLOGY COMMENT NORMAL; RBC MORPHOLOGY COMMENT NORMAL
[2021-03-07] MEDS: ASCORBIC ACID 500 MG TAB PO SCH ×2 (08:19→16:17)
[2021-03-07] MEDS: ZINC SULFATE 220 MG CAP PO SCH (08:20)
[2021-03-07] MEDS: MEROPENEM 1 GM in SODIUM CHLORIDE 0.9% 100 ML IV SCH ×2 (08:31→16:17)
[2021-03-07] MEDS: ENOXAPARIN SOD INJ 40 MG/0.4 ML SYR SC SCH ×2 (08:31→20:30)
[2021-03-07 10:00] LABS: ABG HCO3 25 mmol/L (22-26); ABG PCO2 48 mmHg (35-45); ABG PH 7.32 (7.35-7.45); ABG PO2 95 mmHg (80-105); ABG TCO2 27
[2021-03-07] MEDS: ROCURONIUM 1250MG/NS 250 250 ML IV SCH (12:26)
[2021-03-07] MEDS ORDERED: SODIUM CHLORIDE 0.9% 1000ML 1,000 ML ONE (13:59)
[2021-03-07] MEDS: DEXAMETHASONE SOD PHOS 10 MG/1 ML VIAL IV SCH (16:17)
[2021-03-08] VITALS (25 sets, daily range): BP systolic 92–124; BP diastolic 60–85
[2021-03-08] MEDS ORDERED: SODIUM CHLORIDE 0.9% 250ML 250 ML ONE (00:22)
[2021-03-08] MEDS: MEROPENEM 1 GM in SODIUM CHLORIDE 0.9% 100 ML IV SCH ×2 (00:23→09:19)
[2021-03-08] MEDS: INSULIN REGULAR, HUMAN 100 UNIT/1 ML SQ SCH ×4 (00:23→18:21)
[2021-03-08] MEDS: FENTANYL 2000MCG/NS 250 250 ML IV SCH ×4 (01:52→23:32)
[2021-03-08] MEDS: MIDAZOLAM HCL 5MG/ML 10ML VIAL 100 ML IV PRN ×4 (04:16→19:30)
[2021-03-08 05:28] LABS: BASOPHILS # (AUTO) 0.1 (0.0-0.1); BASOPHILS % 0.1 % (0.0-1.0); EOSINOPHILS % 0.1 % (0.0-6.0); HEMATOCRIT 45.6 % (38.2-49.6); HEMOGLOBIN 14.1 g/dL (14.0-18.0); LYMPHOCYTES # (AUTO) 0.7 (1.0-3.2); LYMPHOCYTES % 1.7 % (18.0-39.1); MEAN CORPUSCULAR HGB CONC 30.9 g/dL (31-35); MONOCYTES # (AUTO) 0.6 (0.2-0.8); MONOCYTES % 1.6 % (4.4-11.3); NEUTROPHILS % 90.4 % (38.7-80.0); PLATELET COUNT 212 x10e3/uL (140-360); RED CELL DISTRIBUTION WIDTH 14.3 % (11.7-14.4)
[2021-03-08 05:45] LABS: ALBUMIN 2.2 g/dL (3.5-5.0); ALBUMIN/GLOBULIN RATIO 0.6 (0.8-2.0); ANION GAP 16.4 mmol/L (8-16); CALCIUM 7.9 mg/dL (8.4-10.2); CREATININE, SERUM 0.81 mg/dL (0.72-1.25); POTASSIUM 5.4 mmol/L (3.5-5.1)
[2021-03-08 07:30] LABS: BAND NEUTROPHILS % (MANUAL) 4 %; LYMPHOCYTES % (MANUAL) 1 % (19-48); MONOCYTES % (MANUAL) 1 % (3.4-9.0); NEUTROPHILS % (MANUAL) 94 % (40-74); PLATELET ESTIMATE ADEQUATE; PLATELET MORPHOLOGY COMMENT NORMAL; RBC MORPHOLOGY COMMENT NORMAL
[2021-03-08] MEDS ORDERED: IVERMECTIN 3MG TABLET 3 MG TABLET PO SCH (09:00)
[2021-03-08] MEDS: DEXAMETHASONE SOD PHOS 10 MG/1 ML VIAL IV SCH (09:19)
[2021-03-08] MEDS: ASCORBIC ACID 500 MG TAB PO SCH ×2 (09:19→18:20)
[2021-03-08] MEDS: ENOXAPARIN SOD INJ 40 MG/0.4 ML SYR SC SCH (09:19)
[2021-03-08 09:42] LABS: ABG HCO3 29 mmol/L (22-26); ABG PCO2 61 mmHg (35-45); ABG PH 7.29 (7.35-7.45); ABG PO2 85 mmHg (80-105); ABG TCO2 31
[2021-03-08] MEDS ORDERED: FUROSEMIDE INJ 10 MG/ML 2 ML VIAL IV ONE (11:15)
[2021-03-08] MEDS: FAMOTIDINE 20 MG/2 ML VIAL IV SCH ×2 (11:32→18:18)
[2021-03-08] MEDS: ZINC SULFATE 220 MG CAP PO SCH (11:41)
[2021-03-08] MEDS ORDERED: VANCOMYCIN 250MG/5ML ORAL SOLN PO SCH (12:00)
[2021-03-08] MEDS ORDERED: ENOXAPARIN INJ 80 MG/0.8 ML SYR SC ONE (13:40)
[2021-03-08] MEDS: IVERMECTIN 3MG TABLET 3 MG TABLET PO SCH (14:15)
[2021-03-08] MEDS: ROCURONIUM 1250MG/NS 250 250 ML IV SCH (14:18)
[2021-03-08] MEDS ORDERED: IOPAMIDOL 370 MG/ML 200 ML INFUS..BTL INJ ONE (14:58)
[2021-03-08] MEDS ORDERED: SODIUM CHLORIDE 0.9% 50ML 50 ML ONE (14:58)
[2021-03-08] MEDS: FLUCONAZOLE 200 MG/100 ML 100 ML IV SCH (19:29)
[2021-03-08] MEDS: CEFEPIME 2 GM in SODIUM CHLORIDE 0.9% 100 ML IV SCH (21:12)
[2021-03-08] MEDS: ENOXAPARIN SOD INJ 120 MG/0.8 ML SYR SC SCH (21:12)
[2021-03-08] MEDS: METRONIDAZOLE 500MG/NS 100ML 100 ML IV SCH (22:35)
[2021-03-09] VITALS (25 sets, daily range): BP systolic 98–144; BP diastolic 55–70
[2021-03-09] MEDS: INSULIN REGULAR, HUMAN 100 UNIT/1 ML SQ SCH ×4 (00:14→17:17)
[2021-03-09] MEDS: MIDAZOLAM HCL 5MG/ML 10ML VIAL 100 ML IV PRN ×5 (00:25→21:31)
[2021-03-09] MEDS: METRONIDAZOLE 500MG/NS 100ML 100 ML IV SCH ×4 (04:37→21:07)
[2021-03-09 05:07] LABS: BASOPHILS # (AUTO) 0.1 (0.0-0.1); BASOPHILS % 0.3 % (0.0-1.0); HEMATOCRIT 35.9 % (38.2-49.6); HEMOGLOBIN 11.2 g/dL (14.0-18.0); LYMPHOCYTES # (AUTO) 0.6 (1.0-3.2); LYMPHOCYTES % 2.5 % (18.0-39.1); MEAN CORPUSCULAR HEMOGLOBIN 29.9 pg (28-32); MEAN CORPUSCULAR HGB CONC 31.2 g/dL (31-35); MEAN CORPUSCULAR VOLUME 95.7 fL (81-99); MONOCYTES # (AUTO) 0.9 (0.2-0.8); MONOCYTES % 3.9 % (4.4-11.3); NEUTROPHILS # (AUTO) 20.7 (2.1-6.9); NEUTROPHILS % 87.8 % (38.7-80.0); PLATELET COUNT 172 x10e3/uL (140-360); RED BLOOD COUNT 3.75 x10e6/uL (4.3-5.7); RED CELL DISTRIBUTION WIDTH 14.8 % (11.7-14.4)
[2021-03-09 05:28] LABS: ALBUMIN/GLOBULIN RATIO 0.6 (0.8-2.0); ANION GAP 12.7 mmol/L (8-16); CALCIUM 7.3 mg/dL (8.4-10.2); CREATININE, SERUM 0.85 mg/dL (0.72-1.25); POTASSIUM 4.7 mmol/L (3.5-5.1)
[2021-03-09] MEDS: FENTANYL 2000MCG/NS 250 250 ML IV SCH ×3 (05:57→19:22)
[2021-03-09] MEDS: FAMOTIDINE 20 MG/2 ML VIAL IV SCH ×2 (08:18→16:14)
[2021-03-09] MEDS: CEFEPIME 2 GM in SODIUM CHLORIDE 0.9% 100 ML IV SCH ×2 (08:18→21:06)
[2021-03-09] MEDS: IVERMECTIN 3MG TABLET 3 MG TABLET PO SCH (08:18)
[2021-03-09] MEDS: ZINC SULFATE 220 MG CAP PO SCH (08:19)
[2021-03-09] MEDS: ENOXAPARIN SOD INJ 120 MG/0.8 ML SYR SC SCH (08:19)
[2021-03-09] MEDS: ASCORBIC ACID 500 MG TAB PO SCH ×2 (08:19→16:14)
[2021-03-09 08:25] LABS: BAND NEUTROPHILS % (MANUAL) 1 %; EOSINOPHILS % (MANUAL) 1 % (0-7); LYMPHOCYTES % (MANUAL) 2 % (19-48); MONOCYTES % (MANUAL) 3 % (3.4-9.0); NEUTROPHILS % (MANUAL) 93 % (40-74)
[2021-03-09 08:26] LABS: PLATELET ESTIMATE ADEQUATE; PLATELET MORPHOLOGY COMMENT NORMAL; RBC MORPHOLOGY COMMENT NORMAL
[2021-03-09] MEDS: BALSAM PERU/CASTOR OIL 60 GM OINT...G. TP SCH (08:34)
[2021-03-09 09:01] LABS: ABG HCO3 28 mmol/L (22-26); ABG PCO2 49 mmHg (35-45); ABG PH 7.36 (7.35-7.45); ABG PO2 86 mmHg (80-105); ABG TCO2 29
[2021-03-09] MEDS: ROCURONIUM 1250MG/NS 250 250 ML IV SCH (09:17)
[2021-03-09] MEDS ORDERED: FUROSEMIDE INJ 10 MG/ML 4 ML VIAL IV ONE (10:00)
[2021-03-09] MEDS: ALBUMIN 25% 25GM 100ML 0.25 GM/ML BTL IV SCH ×3 (10:44→22:26)
[2021-03-09 12:05] LABS: HEMATOCRIT 32.2 % (38.2-49.6); HEMOGLOBIN 9.9 g/dL (14.0-18.0)
[2021-03-09] MEDS: FLUCONAZOLE 200 MG/100 ML 100 ML IV SCH (20:12)
[2021-03-09 20:14] LABS: HEMATOCRIT 32.6 % (38.2-49.6); HEMOGLOBIN 10.1 g/dL (14.0-18.0)
[2021-03-10] VITALS (26 sets, daily range): BP systolic 129–169; BP diastolic 60–85
[2021-03-10] MEDS: INSULIN REGULAR, HUMAN 100 UNIT/1 ML SQ SCH ×4 (00:31→17:16)
[2021-03-10] MEDS: FENTANYL 2000MCG/NS 250 250 ML IV SCH ×3 (03:16→16:31)
[2021-03-10] MEDS: ROCURONIUM 1250MG/NS 250 250 ML IV SCH (03:17)
[2021-03-10] MEDS: MIDAZOLAM HCL 5MG/ML 10ML VIAL 100 ML IV PRN ×4 (03:17→17:48)
[2021-03-10] MEDS: METRONIDAZOLE 500MG/NS 100ML 100 ML IV SCH ×4 (04:45→22:15)
[2021-03-10 05:38] LABS: BASOPHILS # (AUTO) 0.1 (0.0-0.1); BASOPHILS % 0.4 % (0.0-1.0); EOSINOPHILS % 0.1 % (0.0-6.0); HEMOGLOBIN 10.1 g/dL (14.0-18.0); LYMPHOCYTES # (AUTO) 0.6 (1.0-3.2); LYMPHOCYTES % 4.2 % (18.0-39.1); MEAN CORPUSCULAR HEMOGLOBIN 29.3 pg (28-32); MEAN CORPUSCULAR HGB CONC 30.6 g/dL (31-35); MEAN CORPUSCULAR VOLUME 95.7 fL (81-99); MONOCYTES # (AUTO) 1.1 (0.2-0.8); NEUTROPHILS # (AUTO) 11.8 (2.1-6.9); NEUTROPHILS % 85.7 % (38.7-80.0); PLATELET COUNT 180 x10e3/uL (140-360); RED BLOOD COUNT 3.45 x10e6/uL (4.3-5.7); RED CELL DISTRIBUTION WIDTH 15.3 % (11.7-14.4)
[2021-03-10 05:54] LABS: ALBUMIN 3.1 g/dL (3.5-5.0); ALBUMIN/GLOBULIN RATIO 1.1 (0.8-2.0); ANION GAP 13.9 mmol/L (8-16); CALCIUM 8.4 mg/dL (8.4-10.2); CREATININE, SERUM 0.86 mg/dL (0.72-1.25); POTASSIUM 4.9 mmol/L (3.5-5.1)
[2021-03-10] MEDS: IVERMECTIN 3MG TABLET 3 MG TABLET PO SCH (08:14)
[2021-03-10] MEDS: CEFEPIME 2 GM in SODIUM CHLORIDE 0.9% 100 ML IV SCH ×2 (08:14→21:00)
[2021-03-10] MEDS: ZINC SULFATE 220 MG CAP PO SCH (08:14)
[2021-03-10] MEDS: ASCORBIC ACID 500 MG TAB PO SCH ×2 (08:14→16:09)
[2021-03-10] MEDS: FAMOTIDINE 20 MG/2 ML VIAL IV SCH ×2 (08:14→16:09)
[2021-03-10] MEDS: BALSAM PERU/CASTOR OIL 60 GM OINT...G. TP SCH (08:14)
[2021-03-10 09:06] LABS: ABG HCO3 28 mmol/L (22-26); ABG PCO2 45 mmHg (35-45); ABG PH 7.41 (7.35-7.45); ABG PO2 88 mmHg (80-105); ABG TCO2 30
[2021-03-10] MEDS: HYDRALAZINE HCL 20 MG/ML VIAL IV PRN (11:57)
[2021-03-10] MEDS ORDERED: HYDRALAZINE HCL 25 MG TAB NG SCH (12:30)
[2021-03-10 12:36] LABS: FERRITIN 1188.28 ng/mL (21.81-274.66)
[2021-03-10] MEDS: FLUCONAZOLE 200 MG/100 ML 100 ML IV SCH (20:40)
[2021-03-10] MEDS: HYDRALAZINE HCL 25 MG TAB NG SCH (21:00)
[2021-03-10] MEDS: ENOXAPARIN SOD INJ 120 MG/0.8 ML SYR SC SCH (21:00)
[2021-03-10] MEDS ORDERED: SODIUM CHLORIDE 0.9% 100 ML ONE (21:12)
[2021-03-10] MEDS: INSULIN GLARGINE 100 UNITS/ML VIAL SQ SCH (22:17)
[2021-03-10] MEDS: PROPOFOL IV EMULSION 10MG/ML 100 ML IV PRN (23:20)
[2021-03-10] MEDS ORDERED: FUROSEMIDE INJ 10 MG/ML 4 ML VIAL ONE (23:58)
[2021-03-11] VITALS (27 sets, daily range): BP systolic 73–161; BP diastolic 4–86
[2021-03-11] MEDS: ROCURONIUM 1250MG/NS 250 250 ML IV SCH
[2021-03-11] MEDS ORDERED: FUROSEMIDE INJ 10 MG/ML 4 ML VIAL IV STA
[2021-03-11] MEDS: MIDAZOLAM HCL 5MG/ML 10ML VIAL 100 ML IV PRN ×3 (01:21→15:17)
[2021-03-11] MEDS: PROPOFOL IV EMULSION 10MG/ML 100 ML IV PRN (03:50)
[2021-03-11] MEDS: FENTANYL 2000MCG/NS 250 250 ML IV SCH ×3 (03:50→17:13)
[2021-03-11 05:49] LABS: ABG HCO3 24 mmol/L (22-26); ABG PCO2 96 mmHg (35-45); ABG PO2 32 mmHg (80-105)
[2021-03-11 05:50] LABS: ABG TCO2 27
[2021-03-11] MEDS: METRONIDAZOLE 500MG/NS 100ML 100 ML IV SCH ×4 (05:50→21:53)
[2021-03-11] MEDS ORDERED: SODIUM BICARBONATE 8.4% INJ 50 ML SYR IV STA (05:54)
[2021-03-11] MEDS: INSULIN REGULAR, HUMAN 100 UNIT/1 ML SQ SCH ×4 (06:00→18:00)
[2021-03-11] MEDS ORDERED: SODIUM BICARBONATE 8.4% SYRING 100 ML ONE (06:04)
[2021-03-11] MEDS ORDERED: SODIUM BICARBONATE 8.4% SYRING 50 ML ONE (06:06)
[2021-03-11 06:27] LABS: BASOPHILS % 0.4 % (0.0-1.0); EOSINOPHILS % 0.6 % (0.0-6.0); HEMATOCRIT 48.7 % (38.2-49.6); HEMOGLOBIN 13.7 g/dL (14.0-18.0); LYMPHOCYTES # (AUTO) 1.3 (1.0-3.2); LYMPHOCYTES % 18.5 % (18.0-39.1); MEAN CORPUSCULAR HEMOGLOBIN 29.5 pg (28-32); MEAN CORPUSCULAR HGB CONC 28.1 g/dL (31-35); MEAN CORPUSCULAR VOLUME 104.7 fL (81-99); MONOCYTES # (AUTO) 0.3 (0.2-0.8); MONOCYTES % 3.8 % (4.4-11.3); NEUTROPHILS % 72.9 % (38.7-80.0); PLATELET COUNT 256 x10e3/uL (140-360); RED BLOOD COUNT 4.65 x10e6/uL (4.3-5.7); RED CELL DISTRIBUTION WIDTH 15.7 % (11.7-14.4)
[2021-03-11 06:50] LABS: ALBUMIN 2.8 g/dL (3.5-5.0); ALBUMIN/GLOBULIN RATIO 0.8 (0.8-2.0); ANION GAP 24.1 mmol/L (8-16); CALCIUM 8.6 mg/dL (8.4-10.2); CREATININE, SERUM 1.43 mg/dL (0.72-1.25); POTASSIUM 5.1 mmol/L (3.5-5.1)
[2021-03-11] MEDS: SODIUM BICARBONATE 8.4% SYRING 150 ML in DEXTROSE 5% 1,000 ML IV SCH ×3 (07:27→21:38)
[2021-03-11 07:28] LABS: BAND NEUTROPHILS % (MANUAL) 6 %; EOSINOPHILS % (MANUAL) 1 % (0-7); LYMPHOCYTES % (MANUAL) 15 % (19-48); METAMYELOCYTES % (MANUAL) 5 % (0-0); MONOCYTES % (MANUAL) 1 % (3.4-9.0); MYELOCYTES % (MANUAL) 5 % (0-0); NEUTROPHILS % (MANUAL) 67 % (40-74)
[2021-03-11 07:29] LABS: PLATELET ESTIMATE ADEQUATE; PLATELET MORPHOLOGY COMMENT FEW LARGE
[2021-03-11] MEDS: CEFEPIME 2 GM in SODIUM CHLORIDE 0.9% 100 ML IV SCH ×2 (08:16→22:00)
[2021-03-11] MEDS: FAMOTIDINE 20 MG/2 ML VIAL IV SCH ×2 (08:17→17:15)
[2021-03-11] MEDS: CHOLECALCIFEROL 400 UNIT TAB PO SCH (08:17)
[2021-03-11] MEDS: ASCORBIC ACID 500 MG TAB PO SCH ×2 (08:17→17:00)
[2021-03-11] MEDS: ZINC SULFATE 220 MG CAP PO SCH (08:17)
[2021-03-11] MEDS: HYDRALAZINE HCL 25 MG TAB NG SCH ×2 (08:17→21:00)
[2021-03-11] MEDS: BALSAM PERU/CASTOR OIL 60 GM OINT...G. TP SCH (08:18)
[2021-03-11] MEDS: ENOXAPARIN SOD INJ 120 MG/0.8 ML SYR SC SCH ×2 (08:18→21:53)
[2021-03-11] MEDS ORDERED: ALTEPLASE RECOMBINANT 2 MG/2 ML VIAL IV PRN (09:30)
[2021-03-11] MEDS: NOREPINEPHRINE 8 MG/D5W 250 ML 250 ML IV SCH ×2 (09:58→20:36)
[2021-03-11] MEDS: FOLIC ACID 1 MG TAB GT SCH (12:00)
[2021-03-11] MEDS: VASOPRESSIN 60 UNIT in DEXTROSE 5% 50ML 57 ML IV SCH (12:04)
[2021-03-11] MEDS ORDERED: FUROSEMIDE INJ 10 MG/ML 2 ML VIAL IV ONE (13:45)
[2021-03-11] MEDS: FLUCONAZOLE 200 MG/100 ML 100 ML IV SCH (19:55)
[2021-03-11] MEDS: INSULIN GLARGINE 100 UNITS/ML VIAL SQ SCH (21:00)
[2021-03-11] MEDS: PHENYLEPHRINE 10MG/ML VIAL 40 MG in DEXTROSE 5% 250ML 250 ML IV PRN (21:08)
[2021-03-12] VITALS (25 sets, daily range): BP systolic 67–132; BP diastolic 17–94
[2021-03-12] MEDS: VASOPRESSIN 60 UNIT in DEXTROSE 5% 50ML 57 ML IV SCH ×2
[2021-03-12] MEDS: PHENYLEPHRINE 10MG/ML VIAL 40 MG in DEXTROSE 5% 250ML 250 ML IV PRN ×3 (01:12→21:17)
[2021-03-12] MEDS: NOREPINEPHRINE 8 MG/D5W 250 ML 250 ML IV SCH ×4 (01:12→19:58)
[2021-03-12] MEDS: MIDAZOLAM HCL 5MG/ML 10ML VIAL 100 ML IV PRN ×3 (02:39→23:29)
[2021-03-12] MEDS: FENTANYL 2000MCG/NS 250 250 ML IV SCH ×4 (03:00→22:55)
[2021-03-12] MEDS: METRONIDAZOLE 500MG/NS 100ML 100 ML IV SCH ×4 (05:00→21:54)
[2021-03-12 05:26] LABS: BASOPHILS # (AUTO) 0.1 (0.0-0.1); BASOPHILS % 0.3 % (0.0-1.0); EOSINOPHILS # (AUTO) 0.1 (0.0-0.4); EOSINOPHILS % 0.4 % (0.0-6.0); HEMATOCRIT 38.9 % (38.2-49.6); HEMOGLOBIN 11.6 g/dL (14.0-18.0); LYMPHOCYTES # (AUTO) 1.8 (1.0-3.2); LYMPHOCYTES % 8.5 % (18.0-39.1); MEAN CORPUSCULAR HGB CONC 29.8 g/dL (31-35); MEAN CORPUSCULAR VOLUME 100.5 fL (81-99); MONOCYTES % 4.7 % (4.4-11.3); NEUTROPHILS # (AUTO) 17.3 (2.1-6.9); NEUTROPHILS % 82.1 % (38.7-80.0); PLATELET COUNT 159 x10e3/uL (140-360); RED BLOOD COUNT 3.87 x10e6/uL (4.3-5.7); RED CELL DISTRIBUTION WIDTH 15.9 % (11.7-14.4)
[2021-03-12 05:47] LABS: ALBUMIN 2.1 g/dL (3.5-5.0); ALBUMIN/GLOBULIN RATIO 0.7 (0.8-2.0); CALCIUM 7.1 mg/dL (8.4-10.2); CREATININE, SERUM 2.67 mg/dL (0.72-1.25)
[2021-03-12] MEDS: INSULIN REGULAR, HUMAN 100 UNIT/1 ML SQ SCH ×5 (06:00→22:56)
[2021-03-12] MEDS: ROCURONIUM 1250MG/NS 250 250 ML IV SCH (06:05)
[2021-03-12 06:22] LABS: ANION GAP 29.3 mmol/L (8-16); POTASSIUM 5.3 mmol/L (3.5-5.1)
[2021-03-12] MEDS: HYDRALAZINE HCL 25 MG TAB NG SCH ×2 (07:15→19:58)
[2021-03-12] MEDS: FOLIC ACID 1 MG TAB GT SCH (08:16)
[2021-03-12] MEDS: FAMOTIDINE 20 MG/2 ML VIAL IV SCH ×2 (08:17→16:09)
[2021-03-12] MEDS: ASCORBIC ACID 500 MG TAB PO SCH ×2 (08:17→16:09)
[2021-03-12] MEDS: BALSAM PERU/CASTOR OIL 60 GM OINT...G. TP SCH (08:17)
[2021-03-12] MEDS: ZINC SULFATE 220 MG CAP PO SCH (08:17)
[2021-03-12] MEDS: CHOLECALCIFEROL 400 UNIT TAB PO SCH (08:17)
[2021-03-12] MEDS: CEFEPIME 2 GM in SODIUM CHLORIDE 0.9% 100 ML IV SCH ×2 (08:17→20:50)
[2021-03-12] MEDS: ENOXAPARIN SOD INJ 120 MG/0.8 ML SYR SC SCH (08:17)
[2021-03-12 08:59] LABS: BAND NEUTROPHILS % (MANUAL) 25 %; LYMPHOCYTES % (MANUAL) 14 % (19-48); METAMYELOCYTES % (MANUAL) 2 % (0-0); MONOCYTES % (MANUAL) 3 % (3.4-9.0); MYELOCYTES % (MANUAL) 3 % (0-0); NEUTROPHILS % (MANUAL) 49 % (40-74); NUCLEATED RED BLOOD CELLS 21
[2021-03-12 09:00] LABS: HYPOCHROMASIA SLIGHT; PLATELET ESTIMATE ADEQUATE; PLATELET MORPHOLOGY COMMENT FEW LARGE; RBC MORPHOLOGY COMMENT NORMAL; SMUDGE CELLS FEW
[2021-03-12 09:01] LABS: ANISOCYTOSIS SLIG; MICROCYTOSIS SLIG; POIKILOCYTOSIS SLIGHT
[2021-03-12 11:00] LABS: ABG PCO2 55 mmHg (35-45); ABG PH 7.22 (7.35-7.45); ABG PO2 43 mmHg (80-105)
[2021-03-12 11:01] LABS: ABG HCO3 23 mmol/L (22-26); ABG TCO2 24
[2021-03-12] MEDS ORDERED: FUROSEMIDE INJ 10 MG/ML 4 ML VIAL IV NR (13:45)
[2021-03-12] MEDS ORDERED: SODIUM BICARBONATE 8.4% SYRING 150 ML in DEXTROSE 5% 1,000 ML IV SCH (14:00)
[2021-03-12] MEDS: SODIUM BICARBONATE 8.4% SYRING 150 ML in DEXTROSE 5% 1,000 ML IV SCH (14:02)
[2021-03-12] MEDS: FUROSEMIDE INJ 100 MG in SODIUM CHLORIDE 0.9% 100 ML 90 ML IV SCH (14:02)
[2021-03-12] MEDS ORDERED: SODIUM BICARBONATE 8.4% 50 ML VIAL IV NR (15:00)
[2021-03-12] MEDS ORDERED: THIAMINE HCL INJ 100 MG/ML 2ML VIAL IM ONE (15:00)
[2021-03-12] MEDS ORDERED: SODIUM BICARBONATE 8.4% SYRING 100 ML ONE (15:09)
[2021-03-12] MEDS: FLUCONAZOLE 200 MG/100 ML 100 ML IV SCH (19:57)
[2021-03-12] MEDS: INSULIN GLARGINE 100 UNITS/ML VIAL SQ SCH (21:00)
[2021-03-13] VITALS (24 sets, daily range): BP systolic 58–129; BP diastolic 14–89
[2021-03-13] MEDS: NOREPINEPHRINE 8 MG/D5W 250 ML 250 ML IV SCH ×5 (00:57→20:00)
[2021-03-13] MEDS: PHENYLEPHRINE 10MG/ML VIAL 40 MG in DEXTROSE 5% 250ML 250 ML IV PRN ×2 (01:26→20:00)
[2021-03-13] MEDS: VASOPRESSIN 60 UNIT in DEXTROSE 5% 50ML 57 ML IV SCH ×3 (01:28→14:47)
[2021-03-13] MEDS: SODIUM BICARBONATE 8.4% SYRING 150 ML in DEXTROSE 5% 1,000 ML IV SCH ×2 (01:28→13:13)
[2021-03-13] MEDS: FUROSEMIDE INJ 100 MG in SODIUM CHLORIDE 0.9% 100 ML 90 ML IV SCH ×2 (02:08→21:18)
[2021-03-13] MEDS: METRONIDAZOLE 500MG/NS 100ML 100 ML IV SCH ×4 (04:56→23:10)
[2021-03-13] MEDS: ROCURONIUM 1250MG/NS 250 250 ML IV SCH (04:57)
[2021-03-13 05:15] LABS: BASOPHILS # (AUTO) 0.2 (0.0-0.1); BASOPHILS % 0.4 % (0.0-1.0); EOSINOPHILS # (AUTO) 0.2 (0.0-0.4); EOSINOPHILS % 0.6 % (0.0-6.0); HEMATOCRIT 34.9 % (38.2-49.6); HEMOGLOBIN 10.7 g/dL (14.0-18.0); LYMPHOCYTES # (AUTO) 1.9 (1.0-3.2); LYMPHOCYTES % 4.7 % (18.0-39.1); MEAN CORPUSCULAR HEMOGLOBIN 30.4 pg (28-32); MEAN CORPUSCULAR HGB CONC 30.7 g/dL (31-35); MEAN CORPUSCULAR VOLUME 99.1 fL (81-99); MONOCYTES # (AUTO) 2.1 (0.2-0.8); MONOCYTES % 5.2 % (4.4-11.3); NEUTROPHILS # (AUTO) 33.8 (2.1-6.9); NEUTROPHILS % 84.3 % (38.7-80.0); PLATELET COUNT 155 x10e3/uL (140-360); RED BLOOD COUNT 3.52 x10e6/uL (4.3-5.7); RED CELL DISTRIBUTION WIDTH 16.9 % (11.7-14.4)
[2021-03-13 05:56] LABS: ALBUMIN 1.8 g/dL (3.5-5.0); ALBUMIN/GLOBULIN RATIO 0.6 (0.8-2.0); ANION GAP 29.8 mmol/L (8-16); CALCIUM 7.1 mg/dL (8.4-10.2); CREATININE, SERUM 3.91 mg/dL (0.72-1.25); POTASSIUM 5.8 mmol/L (3.5-5.1)
[2021-03-13] MEDS: INSULIN REGULAR, HUMAN 100 UNIT/1 ML SQ SCH ×3 (06:30→18:44)
[2021-03-13] MEDS: FENTANYL 2000MCG/NS 250 250 ML IV SCH ×2 (08:34→17:38)
[2021-03-13] MEDS: MIDAZOLAM HCL 5MG/ML 10ML VIAL 100 ML IV PRN ×2 (08:35→16:47)
[2021-03-13 08:44] LABS: BAND NEUTROPHILS % (MANUAL) 52 %; LYMPHOCYTES % (MANUAL) 3 % (19-48); METAMYELOCYTES % (MANUAL) 4 % (0-0); MONOCYTES % (MANUAL) 2 % (3.4-9.0); MYELOCYTES % (MANUAL) 3 % (0-0); NEUTROPHILS % (MANUAL) 32 % (40-74); NUCLEATED RED BLOOD CELLS 18; PROMYELOCYTES % (MANUAL) 1 % (0-0)
[2021-03-13 08:45] LABS: HYPERSEGMENTED NEUTROPHILS FEW; SMUDGE CELLS FEW
[2021-03-13 08:46] LABS: PLATELET ESTIMATE ADEQUATE; PLATELET MORPHOLOGY COMMENT NORMAL
[2021-03-13] MEDS: FOLIC ACID 1 MG TAB GT SCH (08:47)
[2021-03-13] MEDS: ASCORBIC ACID 500 MG TAB PO SCH ×2 (08:48→15:49)
[2021-03-13] MEDS: CHOLECALCIFEROL 400 UNIT TAB PO SCH (08:48)
[2021-03-13] MEDS: FAMOTIDINE 20 MG/2 ML VIAL IV SCH ×2 (08:48→15:48)
[2021-03-13] MEDS: ZINC SULFATE 220 MG CAP PO SCH (08:48)
[2021-03-13] MEDS: BALSAM PERU/CASTOR OIL 60 GM OINT...G. TP SCH (08:49)
[2021-03-13] MEDS: HYDRALAZINE HCL 25 MG TAB NG SCH ×2 (08:50→21:00)
[2021-03-13] MEDS ORDERED: SODIUM CHLORIDE 0.9% 100 ML ONE ×2 (08:55→20:46)
[2021-03-13] MEDS ORDERED: ENOXAPARIN SOD INJ 120 MG/0.8 ML SYR SC SCH (09:00)
[2021-03-13] MEDS: CEFEPIME 2 GM in SODIUM CHLORIDE 0.9% 100 ML IV SCH ×2 (09:56→22:11)
[2021-03-13] MEDS ORDERED: SOD POLYSTYRENE SULFONATE SUSP 15 GM/60 ML BTL PO ONE (15:30)
[2021-03-13] MEDS ORDERED: DEXTROSE 50% SYRINGE 50 ML IV STA (15:31)
[2021-03-13] MEDS ORDERED: CALCIUM GLUCONATE 10% INJ 4.65 MEQ in SODIUM CHLORIDE 0.9% 50ML 50 ML IV ONE (15:45)
[2021-03-13] MEDS ORDERED: INSULIN REGULAR, HUMAN 100 UNIT/1 ML IV ONE (15:45)
[2021-03-13 20:31] LABS: BASOPHILS # (AUTO) 0.1 (0.0-0.1); BASOPHILS % 0.2 % (0.0-1.0); EOSINOPHILS # (AUTO) 0.3 (0.0-0.4); EOSINOPHILS % 0.7 % (0.0-6.0); HEMOGLOBIN 10.1 g/dL (14.0-18.0); LYMPHOCYTES # (AUTO) 1.9 (1.0-3.2); LYMPHOCYTES % 4.4 % (18.0-39.1); MEAN CORPUSCULAR HEMOGLOBIN 29.7 pg (28-32); MEAN CORPUSCULAR HGB CONC 29.7 g/dL (31-35); MONOCYTES # (AUTO) 2.7 (0.2-0.8); MONOCYTES % 6.3 % (4.4-11.3); NEUTROPHILS # (AUTO) 33.7 (2.1-6.9); NEUTROPHILS % 79.2 % (38.7-80.0); PLATELET COUNT 129 x10e3/uL (140-360); RED CELL DISTRIBUTION WIDTH 17.2 % (11.7-14.4)
[2021-03-13 20:40] LABS: INR 2.13; PROTHROMBIN TIME 24.2 seconds (11.9-14.5)
[2021-03-13] MEDS ORDERED: FUROSEMIDE INJ 10 MG/ML 10 ML VIAL ONE (20:46)
[2021-03-13] MEDS: FLUCONAZOLE 200 MG/100 ML 100 ML IV SCH (21:08)
[2021-03-13] MEDS: HEPARIN SOD (PORCINE) 5,000 UNIT/ML VIAL IV ONE ×2 (21:09→21:22)
[2021-03-13] MEDS ORDERED: HEPARIN 25,000 UNIT 1,500 UNIT in DEXTROSE 5% 250ML 250 ML IV SCH (21:10)
[2021-03-13] MEDS: INSULIN GLARGINE 100 UNITS/ML VIAL SQ SCH (21:19)
[2021-03-13] MEDS ORDERED: FUROSEMIDE INJ 100 MG in SODIUM CHLORIDE 0.9% 100 ML 90 ML IV SCH (22:00)
[2021-03-14] VITALS (14 sets, daily range): BP systolic 32–104; BP diastolic 14–57
[2021-03-14] MEDS: INSULIN REGULAR, HUMAN 100 UNIT/1 ML SQ SCH ×3 (00:01→12:00)
[2021-03-14] MEDS: SODIUM BICARBONATE 8.4% SYRING 150 ML in DEXTROSE 5% 1,000 ML IV SCH ×2 (00:03→12:17)
[2021-03-14] MEDS: NOREPINEPHRINE 8 MG/D5W 250 ML 250 ML IV SCH ×3 (00:03→09:16)
[2021-03-14] MEDS: PHENYLEPHRINE 10MG/ML VIAL 40 MG in DEXTROSE 5% 250ML 250 ML IV PRN ×2 (01:07→04:51)
[2021-03-14] MEDS: ROCURONIUM 1250MG/NS 250 250 ML IV SCH (03:28)
[2021-03-14] MEDS: METRONIDAZOLE 500MG/NS 100ML 100 ML IV SCH ×2 (04:02→09:15)
[2021-03-14 04:49] LABS: BASOPHILS # (AUTO) 0.1 (0.0-0.1); BASOPHILS % 0.5 % (0.0-1.0); EOSINOPHILS # (AUTO) 0.2 (0.0-0.4); EOSINOPHILS % 0.6 % (0.0-6.0); HEMATOCRIT 32.5 % (38.2-49.6); HEMOGLOBIN 9.5 g/dL (14.0-18.0); LYMPHOCYTES # (AUTO) 1.7 (1.0-3.2); MEAN CORPUSCULAR HEMOGLOBIN 29.7 pg (28-32); MEAN CORPUSCULAR HGB CONC 29.2 g/dL (31-35); MEAN CORPUSCULAR VOLUME 101.6 fL (81-99); MONOCYTES # (AUTO) 2.3 (0.2-0.8); MONOCYTES % 8.1 % (4.4-11.3); NEUTROPHILS # (AUTO) 20.2 (2.1-6.9); NEUTROPHILS % 71.9 % (38.7-80.0); PLATELET COUNT 123 x10e3/uL (140-360); RED CELL DISTRIBUTION WIDTH 17.4 % (11.7-14.4)
[2021-03-14] MEDS: FENTANYL 2000MCG/NS 250 250 ML IV SCH (04:50)
[2021-03-14] MEDS: MIDAZOLAM HCL 5MG/ML 10ML VIAL 100 ML IV PRN (04:52)
[2021-03-14] MEDS ORDERED: VASOPRESSIN INJ 20 UNIT/ML VIAL ONE (05:05)
[2021-03-14] MEDS ORDERED: DEXTROSE 5% 100ML 100 ML IV ONE (05:05)
[2021-03-14 05:36] LABS: ALBUMIN 1.4 g/dL (3.5-5.0); ALBUMIN/GLOBULIN RATIO 0.5 (0.8-2.0); ANION GAP 33.7 mmol/L (8-16); CREATININE, SERUM 4.51 mg/dL (0.72-1.25)
[2021-03-14 06:03] LABS: CALCIUM 6.2 mg/dL (8.4-10.2); POTASSIUM 6.7 mmol/L (3.5-5.1)
[2021-03-14] MEDS ORDERED: DEXTROSE 50% SYRINGE 50 ML IV STA (06:07)
[2021-03-14] MEDS ORDERED: SODIUM BICARBONATE 8.4% INJ 50 ML SYR IV STA (06:07)
[2021-03-14] MEDS ORDERED: INSULIN REGULAR, HUMAN 100 UNIT/1 ML IV ONE (06:15)
[2021-03-14] MEDS ORDERED: SOD POLYSTYRENE SULFONATE SUSP 15 GM/60 ML BTL PO ONE (06:15)
[2021-03-14] MEDS ORDERED: SODIUM BICARBONATE 8.4% SYRING 50 ML ONE (06:23)
[2021-03-14] MEDS ORDERED: SOD POLYSTYRENE SULFONATE SUSP 15 GM/60 ML BTL ONE (06:24)
[2021-03-14 07:37] LABS: BAND NEUTROPHILS % (MANUAL) 4 %; LYMPHOCYTES % (MANUAL) 7 % (19-48); METAMYELOCYTES % (MANUAL) 6 % (0-0); MONOCYTES % (MANUAL) 4 % (3.4-9.0); MYELOCYTES % (MANUAL) 11 % (0-0); NEUTROPHILS % (MANUAL) 60 % (40-74); NUCLEATED RED BLOOD CELLS 65; PROMYELOCYTES % (MANUAL) 8 % (0-0)
[2021-03-14 07:39] LABS: ANISOCYTOSIS MODERATE; HYPOCHROMASIA MODERATE; PLATELET ESTIMATE SLIGHTLY DECREASED; PLATELET MORPHOLOGY COMMENT FEW LARGE; POLYCHROMASIA FEW; RBC MORPHOLOGY COMMENT ABNORMAL
[2021-03-14] MEDS: HYDRALAZINE HCL 25 MG TAB NG SCH (09:00)
[2021-03-14] MEDS: BALSAM PERU/CASTOR OIL 60 GM OINT...G. TP SCH (09:15)
[2021-03-14] MEDS: FOLIC ACID 1 MG TAB GT SCH (09:15)
[2021-03-14] MEDS: CEFEPIME 2 GM in SODIUM CHLORIDE 0.9% 100 ML IV SCH (09:15)
[2021-03-14] MEDS: ASCORBIC ACID 500 MG TAB PO SCH (09:15)
[2021-03-14] MEDS: CHOLECALCIFEROL 400 UNIT TAB PO SCH (09:15)
[2021-03-14] MEDS: FAMOTIDINE 20 MG/2 ML VIAL IV SCH (09:15)
[2021-03-14] MEDS: ZINC SULFATE 220 MG CAP PO SCH (09:17)
[2021-03-14] MEDS ORDERED: BIVALRIUDIN 250 MG in SODIUM CHLORIDE 0.9% 250ML 250 ML IV SCH (11:45)
== END 2021-03-14 20:05 | disposition expired | DRG 207 ==
LOC: ER 08:47 → ERHOLD 09:51 → ICU 14:55 → IMCU 03-14 16:30
PROVIDERS: ADMIT Internal Medicine; ATTEND Internal Medicine
PROC: 02HV33Z Insertion of Infusion Device into Superior Vena Cava, Percutaneous Approach (ICD-10-PCS; 2021-02-21)
PROC: XW043E5 Introduction of Remdesivir Anti-infective into Central Vein, Percutaneous Approach, New Technology Group 5 (ICD-10-PCS; 2021-02-21)
PROC: XW043H5 Introduction of Tocilizumab into Central Vein, Percutaneous Approach, New Technology Group 5 (ICD-10-PCS; 2021-02-26)
PROC: 0BH18EZ Insertion of Endotracheal Airway into Trachea, Via Natural or Artificial Opening Endoscopic (ICD-10-PCS; principal; 2021-03-06)
PROC: 5A1955Z Respiratory Ventilation, Greater than 96 Consecutive Hours (ICD-10-PCS; 2021-03-06)
PROC: 02HV33Z Insertion of Infusion Device into Superior Vena Cava, Percutaneous Approach (ICD-10-PCS; 2021-03-08)
PROC: 5A12012 Performance of Cardiac Output, Single, Manual (ICD-10-PCS; 2021-03-11)
DX: U07.1 COVID-19 (principal); J96.01 Acute respiratory failure with hypoxia; N17.0 Acute kidney failure with tubular necrosis; A41.89 Other specified sepsis; R65.21 Severe sepsis with septic shock; J12.82 Pneumonia due to coronavirus disease 2019; K72.00 Acute and subacute hepatic failure without coma; N17.9 Acute kidney failure, unspecified; Z68.41 Body mass index [BMI] 40.0-44.9, adult; E87.2 Acidosis; I82.4Z2 Acute embolism and thrombosis of unspecified deep veins of left distal lower extremity; J93.9 Pneumothorax, unspecified; T82.868A Thrombosis due to vascular prosthetic devices, implants and grafts, initial encounter; R73.9 Hyperglycemia, unspecified; E66.01 Morbid (severe) obesity due to excess calories; E87.5 Hyperkalemia; E83.51 Hypocalcemia; I46.8 Cardiac arrest due to other underlying condition
CPT/HCPCS: 31500; 36415; 36569; 36600; 71045; 71260; 74018; 74177; 80048; 80053; 82607; 82728; 82746; 82805; 82948; 83036; 83540; 83880; 84132; 84466; 84484; 85014; 85018; 85025; 85045; 85379; 85610; 85651; 85730; 86022; 86140; 87040; 87070; 87186; 87205; 92950; 93005; 93970; 94002; 94003; 96372; 99251; 99285; J0330; J0360; J0456; J0583; J0610; J0692; J0696; J1100; J1450; J1650; J1815; J1817; J1940; J2185; J2250; J2370; J2997; J3370; J3411; J7030; J7050; J7070; J7121; J7799; P9047; Q9967